=== PATIENT | male | born 1940 | race Caucasian/White ===

== ENCOUNTER 2021-10-13 09:32 | Inpatient (IN) ==
[2021-10-13] MEDS ORDERED: *HR* Heparin 5,000 UNIT/ML VIAL IVP PRN ×2 (09:50)
[2021-10-13] MEDS ORDERED: *HR* Heparin 5,000 UNIT/ML VIAL IVP ONE (09:50)
[2021-10-13] MEDS ORDERED: 0.9 % Sodium Chloride 500 ML IVC ONE (09:50)
[2021-10-13] MEDS ORDERED: *HR* Midazolam HCl 2 MG/2 ML VIAL ONE (09:58)
[2021-10-13] MEDS ORDERED: *HR* FentaNYL (PF) 100 MCG/2 ML VIAL ONE (09:58)
[2021-10-13] MEDS ORDERED: Nitroglycerin 1,000 MCG/5 ML VIAL IV ONE ×2 (09:59→14:19)
[2021-10-13] MEDS ORDERED: *HR* Heparin 10,000 UNIT/10 ML VIAL ONE ×2 (09:59→14:19)
[2021-10-13] MEDS ORDERED: Heparin 1,000 UNITS/500 mL 500 ML ONE (09:59)
[2021-10-13] MEDS ORDERED: ISOVUE-370 200 ML INFUS..BTL ONE ×3 (09:59→15:06)
[2021-10-13] MEDS ORDERED: Tirofiban 12.5 MG/250ML 0 MG/0 ML BAG ONE (09:59)
[2021-10-13] MEDS ORDERED: 0.9 % Sodium Chloride 1,000 ML ONE ×2 (09:59→14:19)
[2021-10-13] MEDS ORDERED: Heparin 25,000UNIT/250ML 1/2NS 25,000 UNIT/250 ML IV.SOLN IVC SCH (10:00)
[2021-10-13 10:06] LABS: Hematocrit 45.6 % (37.5-50.1); Immature Granulocytes % 0.3 % (0-4); Monocytes % 6.5 %; Red Cell Distribution Width 12.9 % (11.5-14.5)
[2021-10-13 10:07] LABS: Basophils % 0.3 %; Eosinophils # 0.1 K/mcL (0.0-0.6); Hemoglobin 14.8 g/dL (12.9-16.9); Immature Platelets 2.9 % (1.1-6.1); Lymphocytes # 2.2 K/mcL (0.6-4.6); Lymphocytes % 31.1 %; Mean Corpuscular HGB Conc 32.5 g/dL (31.6-35.5); Mean Corpuscular Hemoglobin 32.2 pg (28.0-33.3); Mean Corpuscular Volume 99.3 fL (83.0-100.0); Mean Platelet Volume 10.3 fL (9.4-12.4); Monocytes # 0.5 K/mcL (0.0-1.3); Platelet Count 139 K/mcL (140-400); Red Blood Count 4.59 M/mcL (4.19-5.50); Segmented Neutrophils % 59.8 %; White Blood Count 7.1 K/mcL (4.3-11.1)
[2021-10-13 10:08] LABS: Neutrophils # 4.3 K/mcL (1.6-8.9)
[2021-10-13 10:16] LABS: INR 1.1
[2021-10-13 10:19] LABS: Activated Partial Thrombo Time 28.7 Seconds (26.0-36.0)
[2021-10-13 10:26] LABS: BUN/Creatinine Ratio 19 (6-26); Blood Urea Nitrogen 15 mg/dL (8-23); Calcium 9.1 mg/dL (8.6-10.3); Carbon Dioxide 21 mEq/L (23-29); Chloride 106 mEq/L (98-107); Glucose 225 mg/dL (70-105); Osmolality,Calculated 298 (280-300); Sodium 140 mEq/L (136-145); eGFR For African Americans > 60 (> 60); eGFR For Non-African Americans > 60 (> 60)
[2021-10-13 10:29] LABS: Troponin I 0.09 ng/mL (< 0.04)
[2021-10-13 11:26] LABS: Influenza A PCR Negative (Negative); Influenza B PCR Negative (Negative); Resp. Syncytial Virus PCR Negative (Negative)
[2021-10-13 11:27] LABS: SARS-CoV-2 by PCR (In House) Negative (Negative)
[2021-10-13] MEDS ORDERED: Perflutren Lipid Microsphere 1.3 ML in 0.9 % Sodium Chloride 8.7 ML IVP PRN (12:19)
[2021-10-13] MEDS ORDERED: Naloxone 0.4 MG/ML INJ IVP PRN (12:41)
[2021-10-13] MEDS ORDERED: Ondansetron 4 MG/2 ML VIAL IVP PRN (12:41)
[2021-10-13] MEDS ORDERED: Morphine Sulfate 2 MG/ML SYRINGE IVP STA (12:42)
[2021-10-13] MEDS ORDERED: Morphine Sulfate 2 MG/ML SYRINGE IVP PRN (12:43)
[2021-10-13] MEDS ORDERED: Furosemide 20 MG/2 ML VIAL IVP ONE ×3 (12:55→22:31)
[2021-10-13] MEDS ORDERED: Furosemide 40 MG/4 ML VIAL IVP ONE (13:54)
[2021-10-13] MEDS ORDERED: Heparin 1,000 UNITS/500 mL 0 ML ONE (14:19)
[2021-10-13] MEDS ORDERED: *HR* Ticagrelor 90 MG TABLET ONE (15:14)
[2021-10-13] MEDS ORDERED: Tirofiban 12.5 MG/250ML 12.5 MG/250 ML BAG IVC SCH (15:45)
[2021-10-13] MEDS ORDERED: *HR* Ticagrelor 90 MG TABLET PO SCH (21:00)
[2021-10-14 02:28] LABS: Basophils % 0.1 %; Hematocrit 44.3 % (37.5-50.1); Hemoglobin 14.7 g/dL (12.9-16.9); Immature Granulocytes % 0.6 % (0-4); Lymphocytes # 0.9 K/mcL (0.6-4.6); Lymphocytes % 5.2 %; Mean Corpuscular HGB Conc 33.2 g/dL (31.6-35.5); Mean Corpuscular Hemoglobin 32.7 pg (28.0-33.3); Mean Corpuscular Volume 98.4 fL (83.0-100.0); Mean Platelet Volume 10.9 fL (9.4-12.4); Monocytes # 1.2 K/mcL (0.0-1.3); Monocytes % 7.3 %; Neutrophils # 14.2 K/mcL (1.6-8.9); Platelet Count 187 K/mcL (140-400); Segmented Neutrophils % 86.8 %
[2021-10-14] MEDS ORDERED: 0.9 % Sodium Chloride 250 ML ONE ×2 (02:28→04:43)
[2021-10-14] MEDS ORDERED: Norepinephrine 4 MG/254 ML IV.SOLN IVC SCH (02:30)
[2021-10-14 02:31] LABS: White Blood Count 16.4 K/mcL (4.3-11.1)
[2021-10-14] MEDS ORDERED: Amiodarone Premix 360 MG/200 ML BAG IVC ONE (02:34)
[2021-10-14] MEDS ORDERED: 0.9 % Sodium Chloride 500 ML IVC ONE ×2 (03:00→05:14)
[2021-10-14 03:48] LABS: ABG Base Excess -10 mEq/L (-2 to 3); ABG HCO3 12 mEq/L (21-27); ABG Oxygen Saturation 100 % (95-98); ABG PCO2 17 mmHg (35-45); ABG PH 7.45 pH Units (7.32-7.45); ABG PO2 168 mmHg (85-104); ABG TCO2 12 mEq/L (20-26)
[2021-10-14 04:14] LABS: BUN/Creatinine Ratio 16 (6-26); Blood Urea Nitrogen 19 mg/dL (8-23); Calcium 8.5 mg/dL (8.6-10.3); Carbon Dioxide 16 mEq/L (23-29); Chloride 104 mEq/L (98-107); Glucose 268 mg/dL (70-105); Osmolality,Calculated 294 (280-300); Potassium 4.6 mEq/L (3.5-5.1); Sodium 136 mEq/L (136-145); eGFR For African Americans > 60 (> 60); eGFR For Non-African Americans 60 (> 60)
[2021-10-14] MEDS ORDERED: 0.9 % Sodium Chloride 250 ML IVC ONE (05:04)
[2021-10-14] MEDS ORDERED: Albumin 25% 12.5gm/50mL 12.5 GM/50 ML IV.SOLN IVPB ONE ×2 (05:14→05:34)
[2021-10-14] MEDS ORDERED: Phenylephrine 50 MG in 0.9 % Sodium Chloride 250 ML IVC SCH (05:15)
[2021-10-14] MEDS ORDERED: Albumin Human 5% 12.5 GM/250 ML IV.SOLN IVC SCH (05:45)
[2021-10-14] MEDS ORDERED: Albumin Human 5% 50.0 GM/1,000 ML IV.SOLN ONE (05:51)
[2021-10-14] MEDS ORDERED: *HR* LORazepam 2 MG/ML VIAL IVP PRN (06:22)
[2021-10-14] MEDS ORDERED: Morphine Sulfate 2 MG/ML SYRINGE IVP PRN (06:22)
[2021-10-14] MEDS ORDERED: Atropine 1% Opth Drops 100 DROP/5 ML BOTTLE SL PRN (06:22)
[2021-10-14] MEDS ORDERED: Furosemide 20 MG/2 ML VIAL IVP ONE (08:00)
[2021-10-14] MEDS ORDERED: Atropine Sulfate 1% 40 DROP/2 ML BOTTLE SL PRN (08:30)
[2021-10-14] MEDS ORDERED: Amiodarone Premix 360 MG/200 ML BAG IVC SCH (08:34)
[2021-10-14] MEDS ORDERED: Aspirin 81 MG TAB.CHEW PO SCH (09:00)
== END 2021-10-14 06:30 | disposition expired | DRG 247 ==
LOC: 2ANU 09:32 → EMEROOARM 09:32 → ICNU 13:31
PROVIDERS: ADMIT Student in an Organized Health Care Education/Training Program; ATTEND Student in an Organized Health Care Education/Training Program